=== PATIENT | female | born 1965 | race Caucasian/White ===

== ENCOUNTER 2021-11-26 17:23 | Emergency (ER) | payer MEDICAID, MEDICARE ==
[~2021-11-26] VITALS: Ht 167.6 cm; Wt 65.8 kg
[~2021-11-26 17:23] MED LIST: FLUO15CR TOP; IVER3TAB2 PO; KEP500T PO; NEOM10SO7 OT; NORCO10T PO; ONDA4TAB12 PO; PERM60CR19 TP; VALP250C44 PO; ZOF4T PO
[2021-11-26] MEDS ORDERED: iohexol 350MG/ML 100ml bottle IV ONE (18:12)
[2021-11-26 18:17] LABS: BASOPHILS # (AUTO) 0.1 X10'3 (0-0.2); BASOPHILS % (AUTO) 0.8 % (0-1); EOSINOPHILS # (AUTO) 0.1 X10'3 (0-0.9); EOSINOPHILS % (AUTO) 1.2 % (0-6); HEMATOCRIT 36.3 % (35.0-45.0); LYMPHOCYTES # (AUTO) 2.3 X10'3 (1.1-4.8); LYMPHOCYTES % (AUTO) 26.8 % (21-51); MEAN CORPUSCULAR HGB CONC 33.2 g/dL (33.0-36.5); MEAN CORPUSCULAR VOLUME 87.4 FL (78-98); MONOCYTES # (AUTO) 0.9 X10'3 (0-0.9); MONOCYTES % (AUTO) 10.4 % (2-12); NEUTROPHILS # (AUTO) 5.1 X10'3 (1.8-7.7); NEUTROPHILS % (AUTO) 60.8 % (42-75); PLATELET COUNT 335 X10'3 (140-440); RED BLOOD COUNT 4.15 X10'6 (4.20-5.60); RED CELL DISTRIBUTION WIDTH 14.1 % (11.5-14.5); WHITE BLOOD COUNT 8.4 X10'3 (4.5-11.0)
[2021-11-26 18:28] LABS: ALANINE AMINOTRANSFERASE 19 U/L (12-78); ALBUMIN 3.6 G/DL (3.4-5.0); ALBUMIN/GLOBULIN RATIO 1.1 (1.1-1.5); ALKALINE PHOSPHATASE 68 IU/L (46-116); ANION GAP 12 (8-16); ASPARTATE AMINO TRANSFERASE 18 U/L (10-37); BILIRUBIN,TOTAL 0.1 MG/DL (0.1-1.0); BLOOD UREA NITROGEN 20 MG/DL (7-18); BUN/CREATININE RATIO 20.8 (6.6-38.0); CALCIUM 8.8 MG/DL (8.5-10.1); CHLORIDE 108 MMOL/L (99-107); CREATININE 0.96 MG/DL (0.40-0.90); GLUCOSE 94 MG/DL (70-104); LIPASE 235 U/L (73-393); POTASSIUM 3.9 MMOL/L (3.5-5.1); SODIUM 143 MMOL/L (135-145); TOTAL CARBON DIOXIDE 23.5 MMOL/L (24-32); eGFR 60 ML/MIN
[2021-11-26] MEDS ORDERED: fentaNYL/PF 50MCG/1 ML 2ML syringe IV ONE ×2 (19:00→20:15)
[2021-11-26] MEDS ORDERED: normal saline 1000ML IV soln IVB ONE (20:20)
[2021-11-26 20:47] LABS: CLARITY,URINE CLEAR (Clear); COLOR,URINE YELLOW (Yellow); GLUCOSE, URINE NEGATIVE (Neg); KETONES,URINE NEGATIVE (Neg); LEUKOCYTE ESTERASE ,URINE NEGATIVE (Neg); NITRITES, URINE NEGATIVE (Neg); OCCULT BLOOD,URINE SMALL (Neg); PROTEIN,URINE NEGATIVE (Neg); UROBILINOGEN,URINE 0.2 E.U/dL (0.2-1.0)
[2021-11-26 20:48] LABS: UA COLLECTION TYPE CLN CATCH MIDSTREAM
[2021-11-26 20:55] LABS: BACTERIA,URINE NONE SEEN /HPF (Neg); MUCUS STRANDS NONE SEEN /LPF (Neg); SQUAMOUS EPITHELIAL CELL,UR NONE SEEN /LPF (FEW); WBC,URINE 0-4 /HPF (0-4)
[2021-11-26] MEDS ORDERED: metoclopramide 5 mg/ml inj IV ONE (21:40)
[2021-11-26] MEDS ORDERED: DICY10CA88 PO (21:52)
[2021-11-26] MEDS ORDERED: ONDA4TAB12 PO (21:52)
[2021-11-26 22:22] VITALS: BP 124/72
== END 2021-11-26 22:25 | disposition home or self-care (01) ==
LOC: ER 17:24
DX: R10.11 Right upper quadrant pain (principal); M19.90 Unspecified osteoarthritis, unspecified site; G89.29 Other chronic pain; Z86.69 Personal history of other diseases of the nervous system and sense organs; Z87.442 Personal history of urinary calculi; Z87.440 Personal history of urinary (tract) infections; Z90.710 Acquired absence of both cervix and uterus; Z88.6 Allergy status to analgesic agent; Z88.8 Allergy status to other drugs, medicaments and biological substances; Z88.5 Allergy status to narcotic agent; Z88.1 Allergy status to other antibiotic agents; Z79.899 Other long term (current) drug therapy
CPT/HCPCS: 36415; 74177; 76700; 80053; 81001; 83605; 83690; 85025; 87040; 96361; 96374; 96375; 99285; J2765; J3010; J7030; Q9967

== ENCOUNTER 2022-08-02 08:07 | Emergency (ER) | payer MEDICARE ==
[~2022-08-02] VITALS: Ht 167.6 cm; Wt 55.5 kg
[~2022-08-02 08:07] MED LIST changes: +DICY10CA88 PO
[2022-08-02 08:22] VITALS: BP 130/79
[2022-08-02] MEDS ORDERED: fentaNYL/PF 50MCG/1 ML 2ML syringe IM ONE ×2 (08:35→10:05)
[2022-08-02] MEDS ORDERED: ondansetron 4mg rapidly disintigrating tab PO ONE (08:35)
[2022-08-02] MEDS ORDERED: TETanus/Pertussis (Acell)/Diphther VAC/PF (Tdap-Adult) 0.5ml syringe IMVAC ONE (09:05)
[2022-08-02] MEDS ORDERED: bacitracin 15gm ointment TP ONE (09:05)
[2022-08-02] MEDS ORDERED: amox tr/potassium clavulanate 500mg/125mg TAB PO ONE (09:05)
[2022-08-02] MEDS ORDERED: AMOX-115 PO (09:07)
[2022-08-02] MEDS ORDERED: metoclopramide 5 mg/ml inj IM ONE (10:45)
[2022-08-02] MEDS ORDERED: HYDR-3965 PO (11:49)
--- NOTE | 2022-08-02 13:02 | NUR ---
PT LEFT ER WITHOUT RECEIVING DC AND RX INSTRUCTIONS DISCUSSED PT'S MEDICATIONS AND INFORMED THAT THE ABX ORDERED WAS SENT TO [facility] [address]. INSTRUCTED PT TO RETURN TO THE ER [facility] FOR ANY WORSENING SYMPTOMS SON STATED UNDERSTANDING.
== END 2022-08-02 13:03 | disposition home or self-care (01) ==
LOC: ER 08:08
DX: S61.432A Puncture wound without foreign body of left hand, initial encounter (principal); W54.0XXA Bitten by dog, initial encounter; Y93.89 Activity, other specified; Y92.89 Other specified places as the place of occurrence of the external cause; Y99.8 Other external cause status; G89.29 Other chronic pain; M54.9 Dorsalgia, unspecified; Z87.442 Personal history of urinary calculi; Z88.8 Allergy status to other drugs, medicaments and biological substances; Z88.6 Allergy status to analgesic agent; Z88.1 Allergy status to other antibiotic agents; Z79.899 Other long term (current) drug therapy
CPT/HCPCS: 73130; 90471; 90715; 96372; 99284; J2765; J3010